=== PATIENT | male | born 1980 ===

== ENCOUNTER → 2016-05-29 | Outpatient (CLI) | payer OTHER ==
--- NOTE | 2016-05-29 09:06 | DIAGNOSTIC IMAGING REPORT ---
KUB CLINICAL HISTORY: N20.0 [id number] PAIN WITH URINATION COMPARISON STUDY: 07/14/2015 FINDINGS: The renal shadows are largely obscured overlying bowel gas and fecal material. No definite calculi are visualized. There is no pathologic bowel dilatation. There is a bone island within the left inferior pubic ramus. There is a bone island within the intratrochanteric portion right femur. IMPRESSION: Limited visualization of the renal shadows due to overlying bowel gas and fecal material. No calculi are identified on conventional radiographic imaging Electronically signed by: Mario Connors M.D. 05/29/2016 9:04 AM Dictated Date/Time: 05/29/2016 9:03 AM
== END | disposition home or self-care (01) ==
LOC: C.RAD 08:42
PROVIDERS: ATTEND Nurse Practitioner Family
DX: N20.0 Calculus of kidney (principal)

== ENCOUNTER → 2017-05-10 | Outpatient (CLI) | payer OTHER ==
[2017-05-10 13:59] LABS: GLUCOSE,FASTING 85 mg/dl (70-99)
[2017-05-10 14:13] LABS: CHOLESTEROL 128 mg/dl (0-200); LDL CHOLESTEROL CALCULATED 70 mg/dl
== END | disposition home or self-care (01) ==
LOC: C.LABBC 09:25
PROVIDERS: ATTEND Nurse Practitioner Adult Health
DX: Z00.00 Encounter for general adult medical examination without abnormal findings (principal); E04.9 Nontoxic goiter, unspecified

== ENCOUNTER → 2017-05-16 | Outpatient (CLI) | payer OTHER ==
--- NOTE | 2017-05-16 08:32 | DIAGNOSTIC IMAGING REPORT ---
SOFT TISS HEAD/NECK-THYROID HISTORY: Thyroid nodule THYROID ENLARGEMENT COMPARISON: None. FINDINGS: Right lobe: Large complex nodule encompassing the bulk of the right thyroid lobe. This measures proximally 6 x 5 x 3 cm. Containing solid as well as cystic components. Left lobe: uniform in appearance with a greatest dimension of 2.1 cm. Isthmus: No nodules. IMPRESSION: 1. Large complex nodule/mass encompassing the bulk of the right thyroid lobe. 2. Fine-needle aspiration is suggested The above report was generated using voice recognition software. It may contain grammatical, syntax or spelling errors. Electronically signed by: Robin Baer M.D. 05/16/2017 8:30 AM Dictated Date/Time: 05/16/2017 8:28 AM
== END | disposition home or self-care (01) ==
LOC: C.ULTRBC 07:53
PROVIDERS: ATTEND Nurse Practitioner Adult Health
DX: E04.9 Nontoxic goiter, unspecified (principal)

== ENCOUNTER → 2017-05-23 | Outpatient (CLI) | payer OTHER ==
--- NOTE | 2017-05-23 13:50 | DIAGNOSTIC IMAGING REPORT ---
GUIDANCE NEEDLE PLACEMENT CLINICAL HISTORY: E04.1 nodule TECHNIQUE: Ultrasound guided fine-needle aspiration of the thyroid COMPARISON STUDY: 05/16/2017 FINDINGS: Following description of procedure and informed consent, a total of 3 passes with a 25-gauge needle were made to the dominant nodule. Cellularity was minimal on passed 1 and past 2, with past 3 considered the final pass due to limited success. There were no complications. IMPRESSION: Fine-needle aspiration dominant nodule of the right thyroid The above report was generated using voice recognition software. It may contain grammatical, syntax or spelling errors. Electronically signed by: Robin Baer M.D. 05/23/2017 1:49 PM Dictated Date/Time: 05/23/2017 1:46 PM
== END | disposition home or self-care (01) ==
LOC: C.ULTR 12:31
PROVIDERS: ATTEND Nurse Practitioner Adult Health
DX: E04.1 Nontoxic single thyroid nodule (principal)

== ENCOUNTER → 2017-06-10 | Outpatient (CLI) | payer OTHER | END | disposition home or self-care (01) | LOC: C.LAB1850 15:48 | PROVIDERS: ATTEND Physician Assistant | DX: E05.90 Thyrotoxicosis, unspecified without thyrotoxic crisis or storm (principal) ==

== ENCOUNTER → 2017-11-07 | Outpatient (CLI) | payer OTHER ==
--- NOTE | 2017-11-07 12:43 | DIAGNOSTIC IMAGING REPORT ---
KUB CLINICAL HISTORY: FLANK PAIN dyspnea COMPARISON STUDY: 05/29/2016 FINDINGS: The soft tissues, psoas shadows, renal outlines and intestinal gas pattern appear normal. There is no evidence for bowel obstruction. No abnormal abdominal calcifications are seen. IMPRESSION: Normal study. The above report was generated using voice recognition software. It may contain grammatical, syntax or spelling errors. Electronically signed by: Robin Baer M.D. 11/07/2017 12:41 PM Dictated Date/Time: 11/07/2017 12:41 PM
== END | disposition home or self-care (01) ==
LOC: C.RADBC 11:37
PROVIDERS: ATTEND Physician Assistant Medical
DX: N20.0 Calculus of kidney (principal); R10.9 Unspecified abdominal pain